=== PATIENT | female | born 1955 | race Asian ===

== ENCOUNTER 2017-07-18 23:36 | Inpatient (IN) | payer OTHER ==
[2017-07-19] MEDS ORDERED: Ondansetron ODT 4 MG TAB ONE (00:34)
[2017-07-19] MEDS ORDERED: Morphine 4 MG/ML VIAL ONE (00:34)
[2017-07-19] MEDS ORDERED: Ondansetron HCl/PF 4 MG/2 ML Vial IVP PRN (01:44)
[2017-07-19] MEDS ORDERED: Ondansetron ODT 4 MG TAB SL PRN (01:44)
[2017-07-19] MEDS ORDERED: Sodium Chloride 0.9% 1,000 ML IV SCH (01:45)
[2017-07-19] MEDS ORDERED: Dextrose 5% in Water 1,000 ML IV PRN (01:45)
[2017-07-19] MEDS ORDERED: Dextrose 50% Abboject 50 ML SYRINGE SLOW IVP PRN (01:45)
[2017-07-19 02:12] VITALS: BMI 23.5
[2017-07-19 03:43] LABS: #Lymphocytes 1.1 thou/uL (1.20-3.40); #Monocytes 0.5 thou/uL (0.11-0.59); #Neutrophils 11.1 thou/uL (1.40-6.50); %Basophils 0.1 % (0.0-1.0); %Eosinophils 0.1 % (0.0-10.0); %Lymphocytes 8.4 % (21.0-51.0); %Monocytes 4.1 % (0.0-10.0); %Neutrophils 87.4 % (42.0-75.0); Hemoglobin 13.5 g/dL (12.0-16.0); Mean Corpuscular HGB CONC 33.9 g/dL (32.0-36.0); Mean Corpuscular Hemoglobin 30.6 pg (27.0-31.0); Mean Corpuscular Volume 90.3 fl (81.0-99.0); Platelet Count 265 thou/uL (130-400); RBC Distribution Width 11.5 % (11.5-14.5); Red Blood Cell (RBC) Count 4.41 mill/uL (4.20-5.40); White Blood Cell (WBC) Count 12.7 thou/uL (4.8-10.8)
[2017-07-19 04:00] LABS: Anion Gap 14 mmol/L (10-20); BUN (Urea Nitrogen) 8 mg/dL (9.8-20.1); Calc. Creatinine Clearance 73 mL/min (70-130); Calcium 9.1 mg/dL (7.8-10.44); Carbon Dioxide 25 mmol/L (23-31); Chloride 105 mmol/L (98-107); Estimated GFR-MDRD 77; Glucose 129 mg/dL (80-115); Magnesium 2.2 mg/dL (1.6-2.6); Phosphorus 3.5 mg/dL (2.3-4.7); Potassium 3.1 mmol/L (3.5-5.1); Sodium 141 mmol/L (136-145)
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
[2017-07-19] MEDS ORDERED: Potassium Chloride 20 MEQ/100 ML PREMIX BAG IVPB SCH (04:30)
[2017-07-19] MEDS: Acetaminophen 500 MG TAB PO SCH ×3 (04:59→17:18)
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
[2017-07-19] MEDS: Famotidine 20 MG TAB PO SCH ×2 (08:44→20:22)
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
[2017-07-19] MEDS: traMADol HCl 50 MG TAB PO PRN (20:11)
[2017-07-19] MEDS: Ibuprofen 600 MG TAB PO PRN (20:11)
[2017-07-20] MEDS: Acetaminophen 500 MG TAB PO SCH ×4 (00:09→18:17)
[2017-07-20] MEDS: Ibuprofen 600 MG TAB PO PRN (05:39)
[2017-07-20] MEDS: traMADol HCl 50 MG TAB PO PRN (05:39)
[2017-07-20] MEDS: Famotidine 20 MG TAB PO SCH ×2 (09:11→21:34)
[2017-07-20] MEDS ORDERED: Ondansetron ODT 4 MG TAB PO PRN (13:47)
[2017-07-20 20:17] VITALS: BP 129/53; TEMP 98.6
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
== END 2017-07-20 21:40 | disposition home or self-care (01) | DRG 552 ==
LOC: ERS 23:36 → SURG B 07-19 00:05 → SURG A 07-20 12:50 → SURG B 07-20 12:52
PROVIDERS: ADMIT Specialist; ATTEND Specialist
DX: S32.021A Stable burst fracture of second lumbar vertebra, initial encounter for closed fracture (principal); I10 Essential (primary) hypertension; V47.6XXA Car passenger injured in collision with fixed or stationary object in traffic accident, initial encounter; Z79.899 Other long term (current) drug therapy
CPT/HCPCS: 36415; 80048; 83735; 84100; 85025; 96374; A4216; G0390; G8978-GP-CL; G8979-GP-CJ; G8987-GO-CJ; G8988-GO-CI; J2270; J3480; L0190; Q0162